=== PATIENT | male | born 1970 | race Caucasian/White ===

== ENCOUNTER 2025-09-21 07:10 | Day surgery (SDC) | payer OTHER ==
[2025-09-21 08:00] LABS: PLATELET COUNT,PLT 227.0 K/uL (130-375); RED BLOOD CELL COUNT 4.96 M/uL (4.14-5.76); WHITE BLOOD CELL COUNT,WBC 7.1 K/uL (3.2-11.0)
[2025-09-21 08:15] LABS: BLOOD UREA NITROGEN,BUN 24.0 mg/dL (7-18); CARBON DIOXIDE,CO2 25.0 mmol/L (21-32); CHLORIDE,CL 105.0 mmol/L (100-108); CREATININE 1.0 mg/dL (0.8-1.3); EST CRCL DRUG DOSING (CG) 94.84 mL/min; ESTIMATED GFR 91.0 mL/min (>60); GLUCOSE RANDOM 115.0 mg/dL (74-106); POTASSIUM,K 3.9 mmol/L (3.6-5.2); SODIUM,NA 139.0 mmol/L (140-148)
[2025-09-21] MEDS ORDERED: Succinylcholine 200 MG/10 ML MDV ONE (08:23)
[2025-09-21] MEDS ORDERED: Ondansetron 4 MG/2 ML SDV ONE (08:23)
[2025-09-21] MEDS ORDERED: Propofol 200 MG/20 ML SDV ONE (08:23)
[2025-09-21] MEDS ORDERED: fentaNYL 250 MCG/5 ML SDV ONE (08:23)
[2025-09-21] MEDS ORDERED: Dexamethasone 4 MG/ML SDV ONE (08:23)
[2025-09-21] MEDS: Nozin Nasal Sanitizer NASBOTH ONE (08:24)
[2025-09-21] MEDS: Lactated Ringers 1,000 ML IV SCH (08:24)
[2025-09-21] MEDS: Acetaminophen/oxyCODONE 325-5 MG Tab PO PRN (12:31)
== END 2025-09-21 13:43 | disposition home or self-care (01) ==
LOC: JP.SDS 07:10
PROVIDERS: ATTEND Specialist
DX: M75.122 Complete rotator cuff tear or rupture of left shoulder, not specified as traumatic (principal); M75.42 Impingement syndrome of left shoulder; S43.432A Superior glenoid labrum lesion of left shoulder, initial encounter; Z79.899 Other long term (current) drug therapy
CPT/HCPCS: 36415; 80048; 85027; A9270-GY; C1713; J0330; J0665; J0690; J1100; J2405; J2704; J3010; J3490; J7120